=== PATIENT | male | born 1970 | race Caucasian/White ===

== ENCOUNTER → 2020-02-19 | Outpatient (CLI) | payer OTHER ==
[~2020-02-19] MED LIST: COLLAGENASE OINTMENT 30 GM TUBE ONE; FLEXERIL10 MG PO; GLUCOPHAGE1000 MG PO; LIDOCAINE/PRILOCAINE 2.5-2.5% KIT ONE; MINERAL OIL/PETROLAT/GLYCERI 2OZ CRM ONE; MINERAL OIL/PETROLAT/GLYCERI 6OZ BTL ONE; MUPIROCIN 2% OINT 22 GM TUBE ONE; VICTOZA 2-0.6 MG/0.1; XARELTO20 MG PO; [UNRECOGNIZED DRUG - OTHER]
== END ==
LOC: WCC 09:37
PROVIDERS: ATTEND Family Medicine Adult Medicine
DX: E11.621 Type 2 diabetes mellitus with foot ulcer (principal); L97.429 Non-pressure chronic ulcer of left heel and midfoot with unspecified severity; I89.0 Lymphedema, not elsewhere classified; I82.492 Acute embolism and thrombosis of other specified deep vein of left lower extremity; I82.812 Embolism and thrombosis of superficial veins of left lower extremity; I87.2 Venous insufficiency (chronic) (peripheral); R60.0 Localized edema; G99.0 Autonomic neuropathy in diseases classified elsewhere; I26.90 Septic pulmonary embolism without acute cor pulmonale; I50.9 Heart failure, unspecified; I10 Essential (primary) hypertension; N40.0 Benign prostatic hyperplasia without lower urinary tract symptoms
CPT/HCPCS: 36415; 82948

== ENCOUNTER → 2020-02-26 | Outpatient (CLI) | payer OTHER ==
[~2020-02-26] MED LIST changes: -COLLAGENASE OINTMENT 30 GM TUBE ONE; -LIDOCAINE/PRILOCAINE 2.5-2.5% KIT ONE; -MINERAL OIL/PETROLAT/GLYCERI 2OZ CRM ONE; -MINERAL OIL/PETROLAT/GLYCERI 6OZ BTL ONE; -MUPIROCIN 2% OINT 22 GM TUBE ONE
== END ==
LOC: WCC 11:10
PROVIDERS: ATTEND Family Medicine Adult Medicine
DX: E11.621 Type 2 diabetes mellitus with foot ulcer (principal); I26.90 Septic pulmonary embolism without acute cor pulmonale; L97.429 Non-pressure chronic ulcer of left heel and midfoot with unspecified severity; I82.492 Acute embolism and thrombosis of other specified deep vein of left lower extremity; I82.812 Embolism and thrombosis of superficial veins of left lower extremity; I87.2 Venous insufficiency (chronic) (peripheral); R60.0 Localized edema; I89.0 Lymphedema, not elsewhere classified; I50.9 Heart failure, unspecified; G99.0 Autonomic neuropathy in diseases classified elsewhere; I10 Essential (primary) hypertension; N40.0 Benign prostatic hyperplasia without lower urinary tract symptoms

== ENCOUNTER → 2020-03-01 | Outpatient (CLI) | payer OTHER | LOC: WCC 11:04 | PROVIDERS: ATTEND Family Medicine Adult Medicine | DX: E11.621 Type 2 diabetes mellitus with foot ulcer (principal); I26.90 Septic pulmonary embolism without acute cor pulmonale; L97.429 Non-pressure chronic ulcer of left heel and midfoot with unspecified severity; I82.812 Embolism and thrombosis of superficial veins of left lower extremity; I82.492 Acute embolism and thrombosis of other specified deep vein of left lower extremity; R60.0 Localized edema; I89.0 Lymphedema, not elsewhere classified; I87.2 Venous insufficiency (chronic) (peripheral); I10 Essential (primary) hypertension; N40.0 Benign prostatic hyperplasia without lower urinary tract symptoms; I50.9 Heart failure, unspecified; G99.0 Autonomic neuropathy in diseases classified elsewhere ==

== ENCOUNTER → 2020-03-04 | Outpatient (CLI) | payer OTHER | LOC: WCC 12:54 | PROVIDERS: ATTEND Family Medicine Adult Medicine | DX: E11.621 Type 2 diabetes mellitus with foot ulcer (principal); L97.429 Non-pressure chronic ulcer of left heel and midfoot with unspecified severity; R60.0 Localized edema; I26.90 Septic pulmonary embolism without acute cor pulmonale; I82.492 Acute embolism and thrombosis of other specified deep vein of left lower extremity; I82.812 Embolism and thrombosis of superficial veins of left lower extremity; I87.2 Venous insufficiency (chronic) (peripheral); I89.0 Lymphedema, not elsewhere classified; I10 Essential (primary) hypertension; G99.0 Autonomic neuropathy in diseases classified elsewhere; I50.9 Heart failure, unspecified; N40.0 Benign prostatic hyperplasia without lower urinary tract symptoms | CPT/HCPCS: 87071; 87075; 87186; 87205 ==

== ENCOUNTER → 2020-03-08 | Outpatient (CLI) | payer OTHER | LOC: WCC 10:30 | PROVIDERS: ATTEND Family Medicine Adult Medicine | DX: E11.621 Type 2 diabetes mellitus with foot ulcer (principal); L97.429 Non-pressure chronic ulcer of left heel and midfoot with unspecified severity; I89.0 Lymphedema, not elsewhere classified; I82.812 Embolism and thrombosis of superficial veins of left lower extremity; I82.492 Acute embolism and thrombosis of other specified deep vein of left lower extremity; R60.0 Localized edema; I87.2 Venous insufficiency (chronic) (peripheral); I10 Essential (primary) hypertension; I26.90 Septic pulmonary embolism without acute cor pulmonale; G99.0 Autonomic neuropathy in diseases classified elsewhere; I50.9 Heart failure, unspecified; N40.0 Benign prostatic hyperplasia without lower urinary tract symptoms ==

== ENCOUNTER → 2020-03-11 | Outpatient (CLI) | payer OTHER | LOC: WCC 11:30 | PROVIDERS: ATTEND Family Medicine Adult Medicine | DX: E11.621 Type 2 diabetes mellitus with foot ulcer (principal); I26.90 Septic pulmonary embolism without acute cor pulmonale; L97.429 Non-pressure chronic ulcer of left heel and midfoot with unspecified severity; I82.492 Acute embolism and thrombosis of other specified deep vein of left lower extremity; I82.812 Embolism and thrombosis of superficial veins of left lower extremity; I87.2 Venous insufficiency (chronic) (peripheral); I89.0 Lymphedema, not elsewhere classified; R60.0 Localized edema; B96.89 Other specified bacterial agents as the cause of diseases classified elsewhere; G99.0 Autonomic neuropathy in diseases classified elsewhere; I10 Essential (primary) hypertension; I50.9 Heart failure, unspecified; N40.0 Benign prostatic hyperplasia without lower urinary tract symptoms ==

== ENCOUNTER → 2020-03-15 | Outpatient (CLI) | payer OTHER ==
[~2020-03-15] MED LIST changes: +LIDOCAINE VISC 2% SOLN 15 ML UDC ONE; +MINERAL OIL/PETROLAT/GLYCERI 6OZ BTL ONE
== END ==
LOC: WCC 14:35
PROVIDERS: ATTEND Family Medicine Adult Medicine
DX: E11.621 Type 2 diabetes mellitus with foot ulcer (principal); L97.429 Non-pressure chronic ulcer of left heel and midfoot with unspecified severity; I82.492 Acute embolism and thrombosis of other specified deep vein of left lower extremity; I82.812 Embolism and thrombosis of superficial veins of left lower extremity; I89.0 Lymphedema, not elsewhere classified; I87.2 Venous insufficiency (chronic) (peripheral); R60.0 Localized edema; G99.0 Autonomic neuropathy in diseases classified elsewhere; I50.9 Heart failure, unspecified; I26.90 Septic pulmonary embolism without acute cor pulmonale; I10 Essential (primary) hypertension; B96.89 Other specified bacterial agents as the cause of diseases classified elsewhere; N40.0 Benign prostatic hyperplasia without lower urinary tract symptoms

== ENCOUNTER → 2020-03-18 | Outpatient (CLI) | payer OTHER ==
[~2020-03-18] MED LIST changes: -LIDOCAINE VISC 2% SOLN 15 ML UDC ONE; -MINERAL OIL/PETROLAT/GLYCERI 6OZ BTL ONE
== END ==
LOC: WCC 12:19
PROVIDERS: ATTEND Family Medicine Adult Medicine
DX: E11.621 Type 2 diabetes mellitus with foot ulcer (principal); L97.429 Non-pressure chronic ulcer of left heel and midfoot with unspecified severity; I26.90 Septic pulmonary embolism without acute cor pulmonale; I82.492 Acute embolism and thrombosis of other specified deep vein of left lower extremity; I82.812 Embolism and thrombosis of superficial veins of left lower extremity; I87.2 Venous insufficiency (chronic) (peripheral); I89.0 Lymphedema, not elsewhere classified; R60.0 Localized edema; I10 Essential (primary) hypertension; I50.9 Heart failure, unspecified; B96.89 Other specified bacterial agents as the cause of diseases classified elsewhere; G99.0 Autonomic neuropathy in diseases classified elsewhere; N40.0 Benign prostatic hyperplasia without lower urinary tract symptoms

== ENCOUNTER → 2020-03-22 | Outpatient (CLI) | payer OTHER | LOC: WCC 16:01 | PROVIDERS: ATTEND Family Medicine Adult Medicine | DX: E11.621 Type 2 diabetes mellitus with foot ulcer (principal); L97.429 Non-pressure chronic ulcer of left heel and midfoot with unspecified severity; I82.492 Acute embolism and thrombosis of other specified deep vein of left lower extremity; I82.812 Embolism and thrombosis of superficial veins of left lower extremity; I89.0 Lymphedema, not elsewhere classified; R60.0 Localized edema; I87.2 Venous insufficiency (chronic) (peripheral); I26.90 Septic pulmonary embolism without acute cor pulmonale; I10 Essential (primary) hypertension; I50.9 Heart failure, unspecified; B96.89 Other specified bacterial agents as the cause of diseases classified elsewhere; N40.0 Benign prostatic hyperplasia without lower urinary tract symptoms; G99.0 Autonomic neuropathy in diseases classified elsewhere ==

== ENCOUNTER → 2020-03-25 | Outpatient (CLI) | payer OTHER ==
[2020-03-25 13:17] LABS: BASOPHILS % 0.5 % (0.0-1.0); EOSINOPHILS # (AUTO) 0.2 (0.0-0.4); EOSINOPHILS % 2.7 % (0.0-6.0); HEMATOCRIT 50.3 % (38.2-49.6); HEMOGLOBIN 16.6 g/dL (14.0-18.0); LYMPHOCYTES % 13.7 % (18.0-39.1); MEAN CORPUSCULAR VOLUME 87.8 fL (81-99); MONOCYTES # (AUTO) 0.6 (0.2-0.8); MONOCYTES % 7.8 % (4.4-11.3); NEUTROPHILS # (AUTO) 5.6 (2.1-6.9); NEUTROPHILS % 74.9 % (38.7-80.0); PLATELET COUNT 226 x10e3/uL (140-360); RED BLOOD COUNT 5.73 x10e6/uL (4.3-5.7); RED CELL DISTRIBUTION WIDTH 13.3 % (11.7-14.4)
[2020-03-25 13:21] LABS: CALCIUM 9.2 mg/dL (8.4-10.2); CREATININE, SERUM 1.33 mg/dL (0.72-1.25)
== END ==
LOC: WCC 13:41
PROVIDERS: ATTEND Family Medicine Adult Medicine
DX: E11.621 Type 2 diabetes mellitus with foot ulcer (principal); L97.429 Non-pressure chronic ulcer of left heel and midfoot with unspecified severity; I82.492 Acute embolism and thrombosis of other specified deep vein of left lower extremity; I82.812 Embolism and thrombosis of superficial veins of left lower extremity; I26.90 Septic pulmonary embolism without acute cor pulmonale; R60.0 Localized edema; I87.2 Venous insufficiency (chronic) (peripheral); I89.0 Lymphedema, not elsewhere classified; G99.0 Autonomic neuropathy in diseases classified elsewhere; I10 Essential (primary) hypertension; I50.9 Heart failure, unspecified; N40.0 Benign prostatic hyperplasia without lower urinary tract symptoms; B96.89 Other specified bacterial agents as the cause of diseases classified elsewhere
CPT/HCPCS: 36415; 80048; 83036; 84134; 85025

== ENCOUNTER → 2020-03-29 | Outpatient (CLI) | payer OTHER | LOC: WCC 15:11 | PROVIDERS: ATTEND Family Medicine Adult Medicine | DX: E11.621 Type 2 diabetes mellitus with foot ulcer (principal); L97.429 Non-pressure chronic ulcer of left heel and midfoot with unspecified severity; S91.309A Unspecified open wound, unspecified foot, initial encounter; I82.492 Acute embolism and thrombosis of other specified deep vein of left lower extremity; I82.812 Embolism and thrombosis of superficial veins of left lower extremity; I26.90 Septic pulmonary embolism without acute cor pulmonale; R60.0 Localized edema; I87.2 Venous insufficiency (chronic) (peripheral); I89.0 Lymphedema, not elsewhere classified; G99.0 Autonomic neuropathy in diseases classified elsewhere; I10 Essential (primary) hypertension; I50.9 Heart failure, unspecified; N40.0 Benign prostatic hyperplasia without lower urinary tract symptoms | CPT/HCPCS: 87071; 87075; 87205 ==

== ENCOUNTER → 2020-04-01 | Outpatient (CLI) | payer OTHER | LOC: WCC 16:25 | PROVIDERS: ATTEND Family Medicine Adult Medicine | DX: E11.621 Type 2 diabetes mellitus with foot ulcer (principal); L97.429 Non-pressure chronic ulcer of left heel and midfoot with unspecified severity; I82.492 Acute embolism and thrombosis of other specified deep vein of left lower extremity; I26.90 Septic pulmonary embolism without acute cor pulmonale; S91.309A Unspecified open wound, unspecified foot, initial encounter; I82.812 Embolism and thrombosis of superficial veins of left lower extremity; R60.0 Localized edema; I87.2 Venous insufficiency (chronic) (peripheral); I89.0 Lymphedema, not elsewhere classified; G99.0 Autonomic neuropathy in diseases classified elsewhere; I10 Essential (primary) hypertension; I50.9 Heart failure, unspecified; N40.0 Benign prostatic hyperplasia without lower urinary tract symptoms; X58.XXXA Exposure to other specified factors, initial encounter | CPT/HCPCS: 10140 ==

== ENCOUNTER → 2020-04-05 | Outpatient (CLI) | payer OTHER | LOC: WCC 14:04 | PROVIDERS: ATTEND Family Medicine Adult Medicine | DX: E11.621 Type 2 diabetes mellitus with foot ulcer (principal); L97.429 Non-pressure chronic ulcer of left heel and midfoot with unspecified severity; S91.309A Unspecified open wound, unspecified foot, initial encounter; I26.90 Septic pulmonary embolism without acute cor pulmonale; R60.0 Localized edema; I82.492 Acute embolism and thrombosis of other specified deep vein of left lower extremity; I82.812 Embolism and thrombosis of superficial veins of left lower extremity; I87.2 Venous insufficiency (chronic) (peripheral); I89.0 Lymphedema, not elsewhere classified; I50.9 Heart failure, unspecified; I10 Essential (primary) hypertension; G99.0 Autonomic neuropathy in diseases classified elsewhere; N40.0 Benign prostatic hyperplasia without lower urinary tract symptoms; X58.XXXA Exposure to other specified factors, initial encounter ==

== ENCOUNTER → 2020-04-08 | Outpatient (CLI) | payer OTHER | LOC: WCC 13:49 | PROVIDERS: ATTEND Family Medicine Adult Medicine | DX: E11.621 Type 2 diabetes mellitus with foot ulcer (principal); L97.429 Non-pressure chronic ulcer of left heel and midfoot with unspecified severity; I26.90 Septic pulmonary embolism without acute cor pulmonale; I82.492 Acute embolism and thrombosis of other specified deep vein of left lower extremity; S91.309A Unspecified open wound, unspecified foot, initial encounter; I82.812 Embolism and thrombosis of superficial veins of left lower extremity; I87.2 Venous insufficiency (chronic) (peripheral); I89.0 Lymphedema, not elsewhere classified; R60.0 Localized edema; G99.0 Autonomic neuropathy in diseases classified elsewhere; I10 Essential (primary) hypertension; I50.9 Heart failure, unspecified; N40.0 Benign prostatic hyperplasia without lower urinary tract symptoms; X58.XXXA Exposure to other specified factors, initial encounter ==

== ENCOUNTER → 2020-04-12 | Outpatient (CLI) | payer OTHER | LOC: WCC 14:54 | PROVIDERS: ATTEND Family Medicine Adult Medicine | DX: E11.621 Type 2 diabetes mellitus with foot ulcer (principal); S91.309A Unspecified open wound, unspecified foot, initial encounter; I26.90 Septic pulmonary embolism without acute cor pulmonale; I82.492 Acute embolism and thrombosis of other specified deep vein of left lower extremity; I82.812 Embolism and thrombosis of superficial veins of left lower extremity; I89.0 Lymphedema, not elsewhere classified; R60.0 Localized edema; I87.2 Venous insufficiency (chronic) (peripheral); G99.0 Autonomic neuropathy in diseases classified elsewhere; I10 Essential (primary) hypertension; I50.9 Heart failure, unspecified; N40.0 Benign prostatic hyperplasia without lower urinary tract symptoms; X58.XXXA Exposure to other specified factors, initial encounter ==

== ENCOUNTER → 2020-04-15 | Outpatient (CLI) | payer OTHER | LOC: WCC 14:23 | PROVIDERS: ATTEND Family Medicine Adult Medicine | DX: E11.621 Type 2 diabetes mellitus with foot ulcer (principal); I26.90 Septic pulmonary embolism without acute cor pulmonale; S91.309A Unspecified open wound, unspecified foot, initial encounter; I82.492 Acute embolism and thrombosis of other specified deep vein of left lower extremity; I82.812 Embolism and thrombosis of superficial veins of left lower extremity; R60.0 Localized edema; I87.2 Venous insufficiency (chronic) (peripheral); I89.0 Lymphedema, not elsewhere classified; G99.0 Autonomic neuropathy in diseases classified elsewhere; I10 Essential (primary) hypertension; I50.9 Heart failure, unspecified; N40.0 Benign prostatic hyperplasia without lower urinary tract symptoms; X58.XXXA Exposure to other specified factors, initial encounter ==

== ENCOUNTER → 2020-04-19 | Outpatient (CLI) | payer OTHER | LOC: WCC 14:40 | PROVIDERS: ATTEND Family Medicine Adult Medicine | DX: E11.621 Type 2 diabetes mellitus with foot ulcer (principal); S91.309A Unspecified open wound, unspecified foot, initial encounter; I82.492 Acute embolism and thrombosis of other specified deep vein of left lower extremity; I82.812 Embolism and thrombosis of superficial veins of left lower extremity; I26.90 Septic pulmonary embolism without acute cor pulmonale; R60.0 Localized edema; I87.2 Venous insufficiency (chronic) (peripheral); I89.0 Lymphedema, not elsewhere classified; G99.0 Autonomic neuropathy in diseases classified elsewhere; I10 Essential (primary) hypertension; I50.9 Heart failure, unspecified; N40.0 Benign prostatic hyperplasia without lower urinary tract symptoms; X58.XXXA Exposure to other specified factors, initial encounter ==

== ENCOUNTER → 2020-04-22 | Outpatient (CLI) | payer OTHER | LOC: WCC 10:13 | PROVIDERS: ATTEND Family Medicine Adult Medicine | DX: E11.621 Type 2 diabetes mellitus with foot ulcer (principal); I26.90 Septic pulmonary embolism without acute cor pulmonale; I82.492 Acute embolism and thrombosis of other specified deep vein of left lower extremity; I82.812 Embolism and thrombosis of superficial veins of left lower extremity; S91.309A Unspecified open wound, unspecified foot, initial encounter; I87.2 Venous insufficiency (chronic) (peripheral); R60.0 Localized edema; I89.0 Lymphedema, not elsewhere classified; G99.0 Autonomic neuropathy in diseases classified elsewhere; I10 Essential (primary) hypertension; I50.9 Heart failure, unspecified; N40.0 Benign prostatic hyperplasia without lower urinary tract symptoms; X58.XXXA Exposure to other specified factors, initial encounter ==

== ENCOUNTER → 2020-04-30 | Outpatient (CLI) | payer OTHER | LOC: WCC 14:41 | PROVIDERS: ATTEND Family Medicine Adult Medicine | DX: E11.621 Type 2 diabetes mellitus with foot ulcer (principal); I26.90 Septic pulmonary embolism without acute cor pulmonale; I82.812 Embolism and thrombosis of superficial veins of left lower extremity; S91.309A Unspecified open wound, unspecified foot, initial encounter; I82.492 Acute embolism and thrombosis of other specified deep vein of left lower extremity; R60.0 Localized edema; I89.0 Lymphedema, not elsewhere classified; I87.2 Venous insufficiency (chronic) (peripheral); I50.9 Heart failure, unspecified; I10 Essential (primary) hypertension; G99.0 Autonomic neuropathy in diseases classified elsewhere; N40.0 Benign prostatic hyperplasia without lower urinary tract symptoms; X58.XXXA Exposure to other specified factors, initial encounter ==

== ENCOUNTER → 2020-05-03 | Outpatient (CLI) | payer OTHER | LOC: WCC 15:53 | PROVIDERS: ATTEND Family Medicine Adult Medicine | DX: E11.621 Type 2 diabetes mellitus with foot ulcer (principal); S91.309A Unspecified open wound, unspecified foot, initial encounter; I26.90 Septic pulmonary embolism without acute cor pulmonale; I82.492 Acute embolism and thrombosis of other specified deep vein of left lower extremity; I82.812 Embolism and thrombosis of superficial veins of left lower extremity; I87.2 Venous insufficiency (chronic) (peripheral); R60.0 Localized edema; I89.0 Lymphedema, not elsewhere classified; N40.0 Benign prostatic hyperplasia without lower urinary tract symptoms; I10 Essential (primary) hypertension; I50.9 Heart failure, unspecified; G99.0 Autonomic neuropathy in diseases classified elsewhere; X58.XXXA Exposure to other specified factors, initial encounter ==

== ENCOUNTER → 2020-05-06 | Outpatient (CLI) | payer OTHER | LOC: WCC 15:12 | PROVIDERS: ATTEND Podiatrist | DX: E11.621 Type 2 diabetes mellitus with foot ulcer (principal); L97.421 Non-pressure chronic ulcer of left heel and midfoot limited to breakdown of skin; R60.0 Localized edema; G99.0 Autonomic neuropathy in diseases classified elsewhere; I10 Essential (primary) hypertension; I26.90 Septic pulmonary embolism without acute cor pulmonale; I50.9 Heart failure, unspecified; I82.492 Acute embolism and thrombosis of other specified deep vein of left lower extremity; I82.812 Embolism and thrombosis of superficial veins of left lower extremity; I87.2 Venous insufficiency (chronic) (peripheral); I89.0 Lymphedema, not elsewhere classified; N40.0 Benign prostatic hyperplasia without lower urinary tract symptoms; S91.309A Unspecified open wound, unspecified foot, initial encounter; X58.XXXA Exposure to other specified factors, initial encounter ==

== ENCOUNTER → 2020-05-10 | Outpatient (CLI) | payer OTHER ==
[~2020-05-10] MED LIST changes: +MINERAL OIL/PETROLAT/GLYCERI 6OZ BTL ONE
== END ==
LOC: WCC 15:19
PROVIDERS: ATTEND Family Medicine Adult Medicine
DX: E11.621 Type 2 diabetes mellitus with foot ulcer (principal); L97.421 Non-pressure chronic ulcer of left heel and midfoot limited to breakdown of skin; I87.2 Venous insufficiency (chronic) (peripheral); I26.90 Septic pulmonary embolism without acute cor pulmonale; I82.492 Acute embolism and thrombosis of other specified deep vein of left lower extremity; I82.812 Embolism and thrombosis of superficial veins of left lower extremity; I89.0 Lymphedema, not elsewhere classified; R60.0 Localized edema; G99.0 Autonomic neuropathy in diseases classified elsewhere; I10 Essential (primary) hypertension; N40.0 Benign prostatic hyperplasia without lower urinary tract symptoms; I50.9 Heart failure, unspecified; X58.XXXA Exposure to other specified factors, initial encounter

== ENCOUNTER → 2020-05-13 | Outpatient (CLI) | payer OTHER ==
[~2020-05-13] MED LIST changes: -MINERAL OIL/PETROLAT/GLYCERI 6OZ BTL ONE
== END ==
LOC: WCC 13:27
PROVIDERS: ATTEND Family Medicine Adult Medicine
DX: E11.621 Type 2 diabetes mellitus with foot ulcer (principal); L97.421 Non-pressure chronic ulcer of left heel and midfoot limited to breakdown of skin; I82.492 Acute embolism and thrombosis of other specified deep vein of left lower extremity; I82.812 Embolism and thrombosis of superficial veins of left lower extremity; S91.202A Unspecified open wound of left great toe with damage to nail, initial encounter; I26.90 Septic pulmonary embolism without acute cor pulmonale; I87.2 Venous insufficiency (chronic) (peripheral); I89.0 Lymphedema, not elsewhere classified; R60.0 Localized edema; I10 Essential (primary) hypertension; G99.0 Autonomic neuropathy in diseases classified elsewhere; I50.9 Heart failure, unspecified; N40.0 Benign prostatic hyperplasia without lower urinary tract symptoms; W27.8XXA Contact with other nonpowered hand tool, initial encounter; X58.XXXA Exposure to other specified factors, initial encounter

== ENCOUNTER → 2020-05-17 | Outpatient (CLI) | payer OTHER | LOC: WCC 15:46 | PROVIDERS: ATTEND Family Medicine Adult Medicine | DX: E11.621 Type 2 diabetes mellitus with foot ulcer (principal); I26.90 Septic pulmonary embolism without acute cor pulmonale; L97.421 Non-pressure chronic ulcer of left heel and midfoot limited to breakdown of skin; I82.492 Acute embolism and thrombosis of other specified deep vein of left lower extremity; S91.202A Unspecified open wound of left great toe with damage to nail, initial encounter; I87.2 Venous insufficiency (chronic) (peripheral); I82.812 Embolism and thrombosis of superficial veins of left lower extremity; I89.0 Lymphedema, not elsewhere classified; R60.0 Localized edema; I10 Essential (primary) hypertension; N40.0 Benign prostatic hyperplasia without lower urinary tract symptoms; I50.9 Heart failure, unspecified; G99.0 Autonomic neuropathy in diseases classified elsewhere; W27.8XXA Contact with other nonpowered hand tool, initial encounter; X58.XXXA Exposure to other specified factors, initial encounter ==

== ENCOUNTER → 2020-05-20 | Outpatient (CLI) | payer OTHER | LOC: WCC 14:05 | PROVIDERS: ATTEND Family Medicine Adult Medicine | DX: E11.621 Type 2 diabetes mellitus with foot ulcer (principal); L97.421 Non-pressure chronic ulcer of left heel and midfoot limited to breakdown of skin; S91.202A Unspecified open wound of left great toe with damage to nail, initial encounter; I26.90 Septic pulmonary embolism without acute cor pulmonale; I82.492 Acute embolism and thrombosis of other specified deep vein of left lower extremity; I82.812 Embolism and thrombosis of superficial veins of left lower extremity; I89.0 Lymphedema, not elsewhere classified; I87.2 Venous insufficiency (chronic) (peripheral); R60.0 Localized edema; G99.0 Autonomic neuropathy in diseases classified elsewhere; I10 Essential (primary) hypertension; I50.9 Heart failure, unspecified; N40.0 Benign prostatic hyperplasia without lower urinary tract symptoms; W27.8XXA Contact with other nonpowered hand tool, initial encounter; X58.XXXA Exposure to other specified factors, initial encounter ==

== ENCOUNTER → 2020-05-24 | Outpatient (CLI) | payer OTHER | LOC: WCC 13:31 | PROVIDERS: ATTEND Family Medicine Adult Medicine | DX: S91.202A Unspecified open wound of left great toe with damage to nail, initial encounter (principal); E11.621 Type 2 diabetes mellitus with foot ulcer; L97.421 Non-pressure chronic ulcer of left heel and midfoot limited to breakdown of skin; I87.2 Venous insufficiency (chronic) (peripheral); I82.492 Acute embolism and thrombosis of other specified deep vein of left lower extremity; I82.812 Embolism and thrombosis of superficial veins of left lower extremity; R60.0 Localized edema; I89.0 Lymphedema, not elsewhere classified; I26.90 Septic pulmonary embolism without acute cor pulmonale; N40.0 Benign prostatic hyperplasia without lower urinary tract symptoms; G99.0 Autonomic neuropathy in diseases classified elsewhere; I10 Essential (primary) hypertension; I50.9 Heart failure, unspecified; W27.8XXA Contact with other nonpowered hand tool, initial encounter; X58.XXXA Exposure to other specified factors, initial encounter ==

== ENCOUNTER → 2020-05-27 | Outpatient (CLI) | payer OTHER | LOC: WCC 15:13 | PROVIDERS: ATTEND Family Medicine Adult Medicine | DX: E11.621 Type 2 diabetes mellitus with foot ulcer (principal); I26.90 Septic pulmonary embolism without acute cor pulmonale; S91.202A Unspecified open wound of left great toe with damage to nail, initial encounter; L97.421 Non-pressure chronic ulcer of left heel and midfoot limited to breakdown of skin; I82.492 Acute embolism and thrombosis of other specified deep vein of left lower extremity; I82.812 Embolism and thrombosis of superficial veins of left lower extremity; R60.0 Localized edema; I87.2 Venous insufficiency (chronic) (peripheral); I89.0 Lymphedema, not elsewhere classified; I50.9 Heart failure, unspecified; G99.0 Autonomic neuropathy in diseases classified elsewhere; I10 Essential (primary) hypertension; N40.0 Benign prostatic hyperplasia without lower urinary tract symptoms; W27.8XXA Contact with other nonpowered hand tool, initial encounter; X58.XXXA Exposure to other specified factors, initial encounter ==

== ENCOUNTER → 2020-05-31 | Outpatient (CLI) | payer OTHER | LOC: WCC 14:07 | PROVIDERS: ATTEND Family Medicine Adult Medicine | DX: L89.154 Pressure ulcer of sacral region, stage 4 (principal); E11.69 Type 2 diabetes mellitus with other specified complication; E11.65 Type 2 diabetes mellitus with hyperglycemia; J96.10 Chronic respiratory failure, unspecified whether with hypoxia or hypercapnia; I82.501 Chronic embolism and thrombosis of unspecified deep veins of right lower extremity; I69.954 Hemiplegia and hemiparesis following unspecified cerebrovascular disease affecting left non-dominant side; R53.81 Other malaise; I10 Essential (primary) hypertension; D64.9 Anemia, unspecified; E43 Unspecified severe protein-calorie malnutrition; Z74.01 Bed confinement status ==

== ENCOUNTER → 2020-06-03 | Outpatient (CLI) | payer OTHER | LOC: WCC 15:13 | PROVIDERS: ATTEND Family Medicine Adult Medicine | DX: E11.621 Type 2 diabetes mellitus with foot ulcer (principal); L97.421 Non-pressure chronic ulcer of left heel and midfoot limited to breakdown of skin; I26.90 Septic pulmonary embolism without acute cor pulmonale; I82.492 Acute embolism and thrombosis of other specified deep vein of left lower extremity; I82.812 Embolism and thrombosis of superficial veins of left lower extremity; I87.2 Venous insufficiency (chronic) (peripheral); I89.0 Lymphedema, not elsewhere classified; R60.0 Localized edema; G99.0 Autonomic neuropathy in diseases classified elsewhere; I10 Essential (primary) hypertension; I50.9 Heart failure, unspecified; N40.0 Benign prostatic hyperplasia without lower urinary tract symptoms; W27.8XXA Contact with other nonpowered hand tool, initial encounter; X58.XXXA Exposure to other specified factors, initial encounter ==

== ENCOUNTER → 2020-06-07 | Outpatient (CLI) | payer OTHER | LOC: WCC 15:49 | PROVIDERS: ATTEND Family Medicine Adult Medicine | DX: E11.621 Type 2 diabetes mellitus with foot ulcer (principal); L97.421 Non-pressure chronic ulcer of left heel and midfoot limited to breakdown of skin; I82.492 Acute embolism and thrombosis of other specified deep vein of left lower extremity; I82.812 Embolism and thrombosis of superficial veins of left lower extremity; I87.2 Venous insufficiency (chronic) (peripheral); I26.90 Septic pulmonary embolism without acute cor pulmonale; I89.0 Lymphedema, not elsewhere classified; R60.0 Localized edema; I10 Essential (primary) hypertension; G99.0 Autonomic neuropathy in diseases classified elsewhere; I50.9 Heart failure, unspecified; N40.0 Benign prostatic hyperplasia without lower urinary tract symptoms; W27.8XXA Contact with other nonpowered hand tool, initial encounter; X58.XXXA Exposure to other specified factors, initial encounter ==

== ENCOUNTER → 2020-06-10 | Outpatient (CLI) | payer OTHER | LOC: WCC 15:31 | PROVIDERS: ATTEND Family Medicine Adult Medicine | DX: E11.621 Type 2 diabetes mellitus with foot ulcer (principal); L97.421 Non-pressure chronic ulcer of left heel and midfoot limited to breakdown of skin; I26.90 Septic pulmonary embolism without acute cor pulmonale; I82.492 Acute embolism and thrombosis of other specified deep vein of left lower extremity; I82.812 Embolism and thrombosis of superficial veins of left lower extremity; R60.0 Localized edema; I87.2 Venous insufficiency (chronic) (peripheral); I89.0 Lymphedema, not elsewhere classified; I10 Essential (primary) hypertension; G99.0 Autonomic neuropathy in diseases classified elsewhere; I50.9 Heart failure, unspecified; N40.0 Benign prostatic hyperplasia without lower urinary tract symptoms; W27.8XXA Contact with other nonpowered hand tool, initial encounter; X58.XXXA Exposure to other specified factors, initial encounter ==

== ENCOUNTER → 2020-06-14 | Outpatient (CLI) | payer OTHER | LOC: WCC 15:37 | PROVIDERS: ATTEND Family Medicine Adult Medicine | DX: E11.621 Type 2 diabetes mellitus with foot ulcer (principal); L97.421 Non-pressure chronic ulcer of left heel and midfoot limited to breakdown of skin; I82.812 Embolism and thrombosis of superficial veins of left lower extremity; I82.492 Acute embolism and thrombosis of other specified deep vein of left lower extremity; I26.90 Septic pulmonary embolism without acute cor pulmonale; I87.2 Venous insufficiency (chronic) (peripheral); R60.0 Localized edema; I89.0 Lymphedema, not elsewhere classified; I50.9 Heart failure, unspecified; I10 Essential (primary) hypertension; G99.0 Autonomic neuropathy in diseases classified elsewhere; N40.0 Benign prostatic hyperplasia without lower urinary tract symptoms; W27.8XXA Contact with other nonpowered hand tool, initial encounter; X58.XXXA Exposure to other specified factors, initial encounter ==

== ENCOUNTER → 2020-06-17 | Outpatient (CLI) | payer OTHER | LOC: WCC 13:53 | PROVIDERS: ATTEND Family Medicine Adult Medicine | DX: E11.621 Type 2 diabetes mellitus with foot ulcer (principal); L97.421 Non-pressure chronic ulcer of left heel and midfoot limited to breakdown of skin; I82.492 Acute embolism and thrombosis of other specified deep vein of left lower extremity; I87.2 Venous insufficiency (chronic) (peripheral); I82.812 Embolism and thrombosis of superficial veins of left lower extremity; R60.0 Localized edema; I89.0 Lymphedema, not elsewhere classified; I26.90 Septic pulmonary embolism without acute cor pulmonale; I10 Essential (primary) hypertension; I50.9 Heart failure, unspecified; G99.0 Autonomic neuropathy in diseases classified elsewhere; N40.0 Benign prostatic hyperplasia without lower urinary tract symptoms; W27.8XXA Contact with other nonpowered hand tool, initial encounter; X58.XXXA Exposure to other specified factors, initial encounter ==

== ENCOUNTER 2024-01-13 15:53 | Inpatient (IN) | payer BC ==
[~2024-01-13] VITALS: Ht 190.5 cm; Wt 151.2 kg
[~2024-01-13 15:53] MED LIST changes: +PANTOPRAZOLE SO40 MG PO
[2024-01-13 16:50] VITALS: RESP 18; TEMP 99.2
[2024-01-13 17:47] LABS: BASOPHILS # (AUTO) 0.1 (0.0-0.1); BASOPHILS % 0.4 % (0.0-1.0); EOSINOPHILS # (AUTO) 0.2 (0.0-0.4); EOSINOPHILS % 1.4 % (0.0-6.0); HEMOGLOBIN 13.9 g/dL (14.0-18.0); LYMPHOCYTES # (AUTO) 0.7 (1.0-3.2); LYMPHOCYTES % 4.9 % (18.0-39.1); MEAN CORPUSCULAR HEMOGLOBIN 28.5 pg (28-32); MEAN CORPUSCULAR HGB CONC 30.9 g/dL (31-35); MEAN CORPUSCULAR VOLUME 92.2 fL (81-99); MONOCYTES # (AUTO) 0.9 (0.2-0.8); NEUTROPHILS # (AUTO) 11.4 (2.1-6.9); NEUTROPHILS % 85.7 % (38.7-80.0); PLATELET COUNT 323 x10e3/uL (140-360); RED BLOOD COUNT 4.88 x10e6/uL (4.3-5.7); RED CELL DISTRIBUTION WIDTH 13.5 % (11.7-14.4); WHITE BLOOD COUNT 13.35 x10e3/uL (4.8-10.8)
[2024-01-13 18:01] LABS: INR 1.18; PROTHROMBIN TIME 15.6 seconds (11.9-14.5)
[2024-01-13 18:02] LABS: PARTIAL THROMBOPLASTIN TIME 31.3 seconds (23.8-35.5)
[2024-01-13 18:05] LABS: ALBUMIN 2.8 g/dL (3.5-5.0); ALBUMIN/GLOBULIN RATIO 0.5 (0.8-2.0); ANION GAP 19.2 mmol/L (8-16); CALCIUM 9.3 mg/dL (8.4-10.2); CREATININE, SERUM 1.39 mg/dL (0.72-1.25); POTASSIUM 4.2 mmol/L (3.5-5.1); TOTAL PROTEIN 8.2 g/dL (6.5-8.1)
[2024-01-13] MEDS ORDERED: ONDANSETRON HCL INJ 2MG/ML 2ML 2 MG/ML VIAL IV PRN (18:45)
[2024-01-13 20:00] VITALS: PULSE 90
[2024-01-13] MEDS: SODIUM CHLORIDE 0.9% 1000ML 1,000 ML IV SCH (20:01)
[2024-01-13] MEDS: Clindamycin INJ 300 MG/50 ML 50 ML IV SCH (20:01)
[2024-01-13 20:45] VITALS: BP 132/67; PULSE 89; RESP 20; TEMP 98.8; O2SAT 97; O2SAT 98
[2024-01-13 20:50] VITALS: BP 132/67; PULSE 89; RESP 20; TEMP 98.8; O2SAT 97
[2024-01-13] MEDS ORDERED: TRESIBA FL100 UNIT/1 SC (22:03)
[2024-01-13] MEDS ORDERED: humalog (22:03)
[2024-01-13] MEDS ORDERED: ELIQUIS5 MG PO (22:03)
[2024-01-13] MEDS: Morphine 4mg INJECTION 4 MG/ML INJ IV PRN (22:51)
[2024-01-13 23:20] LABS: TROPONIN I 0.007 ng/mL (0-0.300)
[2024-01-14] VITALS (8 sets, daily range): BP systolic 127–144; BP diastolic 66–72; PULSE 67–80; RESP 18–20; TEMP 97.9–99.6; O2SAT 96–98
[2024-01-14 06:43] LABS: BASOPHILS # (AUTO) 0.1 (0.0-0.1); BASOPHILS % 0.5 % (0.0-1.0); EOSINOPHILS # (AUTO) 0.3 (0.0-0.4); EOSINOPHILS % 2.5 % (0.0-6.0); HEMOGLOBIN 11.8 g/dL (14.0-18.0); LYMPHOCYTES # (AUTO) 0.9 (1.0-3.2); LYMPHOCYTES % 8.5 % (18.0-39.1); MEAN CORPUSCULAR HEMOGLOBIN 28.9 pg (28-32); MEAN CORPUSCULAR HGB CONC 31.9 g/dL (31-35); MEAN CORPUSCULAR VOLUME 90.7 fL (81-99); MONOCYTES % 9.4 % (4.4-11.3); NEUTROPHILS # (AUTO) 8.4 (2.1-6.9); NEUTROPHILS % 78.7 % (38.7-80.0); PLATELET COUNT 261 x10e3/uL (140-360); RED BLOOD COUNT 4.08 x10e6/uL (4.3-5.7); RED CELL DISTRIBUTION WIDTH 13.7 % (11.7-14.4); WHITE BLOOD COUNT 10.72 x10e3/uL (4.8-10.8)
[2024-01-14 07:03] LABS: ALBUMIN 2.3 g/dL (3.5-5.0); ALBUMIN/GLOBULIN RATIO 0.5 (0.8-2.0); ANION GAP 13.7 mmol/L (8-16); BILIRUBIN,TOTAL 0.7 mg/dL (0.2-1.2); CALCIUM 8.5 mg/dL (8.4-10.2); CREATININE, SERUM 1.24 mg/dL (0.72-1.25); POTASSIUM 3.7 mmol/L (3.5-5.1); TOTAL PROTEIN 6.6 g/dL (6.5-8.1)
[2024-01-14 07:09] LABS: TROPONIN I 0.006 ng/mL (0-0.300)
[2024-01-14 11:07] LABS: TROPONIN I 0.003 ng/mL (0-0.300)
[2024-01-14] MEDS ORDERED: DEXTROSE 50% SYRINGE 50 ML IV PRN (13:45)
[2024-01-14] MEDS: INSULIN REGULAR, HUMAN 100 UNIT/1 ML SQ SCH (17:37)
[2024-01-14] MEDS ORDERED: POLYETHYLENE GLYCOL 3350 17 GM PACK PO PRN (17:45)
[2024-01-14] MEDS ORDERED: ACETAMINOPHEN 325 MG TAB PO PRN (17:45)
[2024-01-14] MEDS: PANTOPRAZOLE SOD 40 MG TABEC PO ONE (18:51)
[2024-01-14] MEDS: ENOXAPARIN SODIUM INJ 100 MG/ML SYR SC ONE (21:18)
[2024-01-15] VITALS (8 sets, daily range): BP systolic 119–154; BP diastolic 60–87; PULSE 58–98; RESP 17–19; TEMP 97.7–98.9; O2SAT 96–100
[2024-01-15 07:12] LABS: BASOPHILS # (AUTO) 0.1 (0.0-0.1); BASOPHILS % 0.5 % (0.0-1.0); EOSINOPHILS # (AUTO) 0.2 (0.0-0.4); HEMATOCRIT 41.4 % (38.2-49.6); HEMOGLOBIN 12.8 g/dL (14.0-18.0); LYMPHOCYTES % 10.6 % (18.0-39.1); MEAN CORPUSCULAR HEMOGLOBIN 28.6 pg (28-32); MEAN CORPUSCULAR HGB CONC 30.9 g/dL (31-35); MEAN CORPUSCULAR VOLUME 92.4 fL (81-99); MONOCYTES # (AUTO) 0.7 (0.2-0.8); MONOCYTES % 7.8 % (4.4-11.3); NEUTROPHILS # (AUTO) 7.4 (2.1-6.9); NEUTROPHILS % 78.7 % (38.7-80.0); PLATELET COUNT 273 x10e3/uL (140-360); RED BLOOD COUNT 4.48 x10e6/uL (4.3-5.7); RED CELL DISTRIBUTION WIDTH 13.5 % (11.7-14.4); WHITE BLOOD COUNT 9.41 x10e3/uL (4.8-10.8)
[2024-01-15 07:27] LABS: ALBUMIN 2.1 g/dL (3.5-5.0); ALBUMIN/GLOBULIN RATIO 0.5 (0.8-2.0); BILIRUBIN,TOTAL 0.7 mg/dL (0.2-1.2); CALCIUM 8.5 mg/dL (8.4-10.2); CHOL/HDL RATIO 3.1 (3.9-4.7); CREATININE, SERUM 1.13 mg/dL (0.72-1.25); TOTAL PROTEIN 6.6 g/dL (6.5-8.1)
[2024-01-15 07:45] LABS: MAGNESIUM 1.8 MG/DL (1.3-2.1); PHOSPHORUS 3.3 MG/DL (2.3-4.7)
[2024-01-15 07:47] LABS: THYROID STIMULATING HORMONE 2.206 uIU/mL (0.350-4.940)
[2024-01-15 08:06] LABS: FREE T4 (FREE THYROXINE) 0.82 ng/dL (0.8-1.8)
[2024-01-15] MEDS ORDERED: ENOXAPARIN SODIUM INJ 100 MG/ML SYR SC SCH (09:00)
[2024-01-15] MEDS: DOCUSATE SODIUM 100 MG CAP PO SCH (09:32)
[2024-01-15] MEDS: ASCORBIC ACID 500 MG TAB PO SCH (09:32)
[2024-01-15] MEDS: ZINC SULFATE 50 MG CAP PO SCH (09:32)
[2024-01-15] MEDS: MAGNESIUM OXIDE 400 MG TAB PO SCH (09:32)
[2024-01-15] MEDS: PANTOPRAZOLE SOD 40 MG TABEC PO SCH (09:32)
[2024-01-15] MEDS: ENOXAPARIN SOD INJ 120 MG/0.8 ML SYR SC SCH (09:33)
[2024-01-15] MEDS: OYST-CAL-D 500MG TABLET PO SCH (09:34)
[2024-01-15] MEDS: POVIDONE IODINE 10% 120 ML BTL EXT SCH (09:35)
[2024-01-15] MEDS: MULTIVITAMINS/MINERALS TAB PO SCH (09:35)
[2024-01-16] VITALS (10 sets, daily range): BP systolic 121–162; BP diastolic 68–80; PULSE 67–74; RESP 17–21; TEMP 97.7–98.7; O2SAT 94–99
[2024-01-16] MEDS: HYDRALAZINE HCL 20 MG/ML VIAL IV PRN (21:51)
[2024-01-17] VITALS (10 sets, daily range): BP systolic 110–171; BP diastolic 68–81; PULSE 64–101; RESP 17–20; TEMP 96.5–98.7; O2SAT 95–98
[2024-01-17] MEDS: POLYETHYLENE GLYCOL 3350 17 GM PACK PO SCH (12:56)
[2024-01-17] MEDS: CEFAZOLIN SODIUM 2 GM in SODIUM CHLORIDE 0.9% 100 ML IV SCH (17:15)
[2024-01-18] VITALS (10 sets, daily range): BP systolic 119–150; BP diastolic 64–86; PULSE 68–81; RESP 18; TEMP 97.4–98.3; O2SAT 94–98
[2024-01-18] MEDS ORDERED: PROPOFOL IV EMULSION 10 MG/ML 20 ML VIAL ONE ×3 (06:54→08:42)
[2024-01-18] MEDS ORDERED: LIDOCAINE HCL 2% LOCAL INJ 5 ML SDV VIAL INJ ONE ×2 (06:54→08:41)
[2024-01-18] MEDS ORDERED: FENTANYL CITRATE/PF 100MCG/2 ML INJ ONE ×2 (06:54→08:41)
[2024-01-18] MEDS ORDERED: ONDANSETRON HCL INJ 2MG/ML 2ML 2 MG/ML VIAL ONE ×2 (06:54→10:15)
[2024-01-18] MEDS ORDERED: NEOSTIGMINE 1 MG/ML 10ML VIAL ONE (07:47)
[2024-01-18] MEDS ORDERED: DEXAMETHASONE SOD PHOS INJ 4 MG/ML SDV ONE ×3 (07:47→10:15)
[2024-01-18] MEDS ORDERED: BUPIVACAINE HCL 0.5% INJ 30 ML VIAL INJ ONE (07:47)
[2024-01-18] MEDS ORDERED: ESMOLOL HCL 100MG/10ML 10 MG/ML VIAL ONE (08:21)
[2024-01-18] MEDS ORDERED: SODIUM CHLORIDE 0.9% 100 ML ONE (08:21)
[2024-01-18] MEDS ORDERED: ACETAMINOPHEN 1000 MG/100 ML 100 ML IV ONE (08:23)
[2024-01-18] MEDS ORDERED: METOCLOPRAMIDE HCL 10 MG/2ML VIAL ONE (10:15)
[2024-01-18] MEDS ORDERED: SEVOFLURANE INHAL SOLN 250 ML PEN BTL ONE (10:22)
[2024-01-18] MEDS ORDERED: PHENYLEPHRINE HCL 1% 10 MG/ML VIAL ONE (10:22)
[2024-01-18 12:47] LABS: BASOPHILS % 0.4 % (0.0-1.0); EOSINOPHILS # (AUTO) 0.3 (0.0-0.4); EOSINOPHILS % 3.6 % (0.0-6.0); HEMATOCRIT 41.3 % (38.2-49.6); HEMOGLOBIN 13.4 g/dL (14.0-18.0); LYMPHOCYTES # (AUTO) 1.2 (1.0-3.2); LYMPHOCYTES % 16.3 % (18.0-39.1); MEAN CORPUSCULAR HEMOGLOBIN 28.5 pg (28-32); MEAN CORPUSCULAR HGB CONC 32.4 g/dL (31-35); MEAN CORPUSCULAR VOLUME 87.7 fL (81-99); MONOCYTES # (AUTO) 0.4 (0.2-0.8); MONOCYTES % 5.8 % (4.4-11.3); NEUTROPHILS # (AUTO) 5.3 (2.1-6.9); NEUTROPHILS % 73.6 % (38.7-80.0); PLATELET COUNT 362 x10e3/uL (140-360); RED BLOOD COUNT 4.71 x10e6/uL (4.3-5.7); RED CELL DISTRIBUTION WIDTH 13.3 % (11.7-14.4); WHITE BLOOD COUNT 7.13 x10e3/uL (4.8-10.8)
[2024-01-18 12:59] LABS: ALBUMIN 2.1 g/dL (3.5-5.0); ANION GAP 12.2 mmol/L (8-16); BILIRUBIN,TOTAL 0.3 mg/dL (0.2-1.2); CALCIUM 8.6 mg/dL (8.4-10.2); CREATININE, SERUM 1.2 mg/dL (0.72-1.25); MAGNESIUM 2.1 MG/DL (1.3-2.1); PHOSPHORUS 3.8 MG/DL (2.3-4.7); POTASSIUM 4.2 mmol/L (3.5-5.1); TOTAL PROTEIN 6.9 g/dL (6.5-8.1)
[2024-01-18 13:00] LABS: ALBUMIN/GLOBULIN RATIO 0.4 (0.8-2.0)
[2024-01-19] VITALS (9 sets, daily range): BP systolic 140–185; BP diastolic 67–90; PULSE 66–80; RESP 18–20; TEMP 97.5–98.5; O2SAT 96–99
[2024-01-20] VITALS (10 sets, daily range): BP systolic 155–185; BP diastolic 72–88; PULSE 71–82; RESP 17–18; TEMP 97.8–98.4; O2SAT 95–98
[2024-01-20 06:17] LABS: BASOPHILS % 0.5 % (0.0-1.0); EOSINOPHILS # (AUTO) 0.3 (0.0-0.4); EOSINOPHILS % 4.5 % (0.0-6.0); HEMATOCRIT 39.4 % (38.2-49.6); HEMOGLOBIN 12.6 g/dL (14.0-18.0); LYMPHOCYTES # (AUTO) 0.8 (1.0-3.2); LYMPHOCYTES % 12.4 % (18.0-39.1); MEAN CORPUSCULAR HEMOGLOBIN 28.7 pg (28-32); MEAN CORPUSCULAR VOLUME 89.7 fL (81-99); MONOCYTES # (AUTO) 0.4 (0.2-0.8); MONOCYTES % 6.6 % (4.4-11.3); NEUTROPHILS # (AUTO) 4.7 (2.1-6.9); NEUTROPHILS % 75.5 % (38.7-80.0); PLATELET COUNT 334 x10e3/uL (140-360); RED BLOOD COUNT 4.39 x10e6/uL (4.3-5.7); RED CELL DISTRIBUTION WIDTH 13.3 % (11.7-14.4); WHITE BLOOD COUNT 6.21 x10e3/uL (4.8-10.8)
[2024-01-20 06:35] LABS: ANION GAP 12.3 mmol/L (8-16); CALCIUM 8.7 mg/dL (8.4-10.2); CREATININE, SERUM 1.03 mg/dL (0.72-1.25); POTASSIUM 4.3 mmol/L (3.5-5.1)
[2024-01-21] VITALS (10 sets, daily range): BP systolic 154–183; BP diastolic 76–99; PULSE 65–82; RESP 17–20; TEMP 97.6–98.4; O2SAT 95–100
[2024-01-21] MEDS: CARVEDILOL 12.5 MG TAB PO SCH (17:14)
[2024-01-22] VITALS (8 sets, daily range): BP systolic 153–177; BP diastolic 71–82; PULSE 60–68; RESP 18–20; TEMP 97.6–98.2; O2SAT 97–99
[2024-01-22] MEDS: APIXABAN 5 MG TABLET PO SCH (09:58)
[2024-01-22] MEDS ORDERED: ACETAMINOPHEN325 M1 PO (20:51)
[2024-01-22] MEDS ORDERED: MAG-OXIDE400 MG PO (20:51)
[2024-01-22] MEDS ORDERED: COREG12.5 MG PO (20:51)
[2024-01-22] MEDS ORDERED: ONDANSETRON ODT4 MG PO (20:51)
[2024-01-22] MEDS ORDERED: CEFAZOLIN2 GM/100 M IV (20:51)
[2024-01-22] MEDS ORDERED: COLACE100 M1 PO (20:51)
[2024-01-22] MEDS ORDERED: CALCIUM 500+D1 EAC1 PO (20:51)
[2024-01-22] MEDS ORDERED: PANTOPRAZOLE SO40 MG PO (20:51)
[2024-01-22] MEDS ORDERED: ZINC SULFATE50 M1 PO (20:51)
[2024-01-22] MEDS ORDERED: ONE DAILY COMP1 EACH PO (20:51)
[2024-01-22] MEDS ORDERED: ASCORBIC ACID500 MG PO (20:51)
== END 2024-01-22 22:20 | disposition home or self-care (01) | DRG 240 ==
LOC: ER 18:11 → ERHOLD 18:34 → MED/SURG3 20:16
PROVIDERS: ADMIT Internal Medicine; ATTEND Internal Medicine
PROC: 0J9R0ZZ Drainage of Left Foot Subcutaneous Tissue and Fascia, Open Approach (ICD-10-PCS; 2024-01-14)
PROC: 0Y6N0ZD Detachment at Left Foot, Partial 4th Ray, Open Approach (ICD-10-PCS; principal; 2024-01-21)
PROC: 0HRMXJ3 Replacement of Right Foot Skin with Synthetic Substitute, Full Thickness, External Approach (ICD-10-PCS; 2024-01-21)
PROC: 0JBQ0ZZ Excision of Right Foot Subcutaneous Tissue and Fascia, Open Approach (ICD-10-PCS; 2024-01-21)
PROC: 0JBR0ZZ Excision of Left Foot Subcutaneous Tissue and Fascia, Open Approach (ICD-10-PCS; 2024-01-21)
PROC: 02HV33Z Insertion of Infusion Device into Superior Vena Cava, Percutaneous Approach (ICD-10-PCS; 2024-01-21)
DX: E11.52 Type 2 diabetes mellitus with diabetic peripheral angiopathy with gangrene (principal); I87.013 Postthrombotic syndrome with ulcer of bilateral lower extremity; T82.868A Thrombosis due to vascular prosthetic devices, implants and grafts, initial encounter; Z68.41 Body mass index [BMI] 40.0-44.9, adult; L03.116 Cellulitis of left lower limb; L02.612 Cutaneous abscess of left foot; L97.518 Non-pressure chronic ulcer of other part of right foot with other specified severity; L97.528 Non-pressure chronic ulcer of other part of left foot with other specified severity; Z16.29 Resistance to other single specified antibiotic; E11.621 Type 2 diabetes mellitus with foot ulcer; E66.01 Morbid (severe) obesity due to excess calories; E11.40 Type 2 diabetes mellitus with diabetic neuropathy, unspecified; E11.65 Type 2 diabetes mellitus with hyperglycemia; I82.5Y2 Chronic embolism and thrombosis of unspecified deep veins of left proximal lower extremity; L03.032 Cellulitis of left toe; L08.9 Local infection of the skin and subcutaneous tissue, unspecified; I44.0 Atrioventricular block, first degree; I45.4 Nonspecific intraventricular block; I48.0 Paroxysmal atrial fibrillation; I87.8 Other specified disorders of veins; I89.0 Lymphedema, not elsewhere classified; G47.33 Obstructive sleep apnea (adult) (pediatric); R53.81 Other malaise; B95.61 Methicillin susceptible Staphylococcus aureus infection as the cause of diseases classified elsewhere; Z79.01 Long term (current) use of anticoagulants; Z79.4 Long term (current) use of insulin; Z79.84 Long term (current) use of oral hypoglycemic drugs; Z95.828 Presence of other vascular implants and grafts; Z89.421 Acquired absence of other right toe(s); Z85.47 Personal history of malignant neoplasm of testis; Z86.711 Personal history of pulmonary embolism; Z83.3 Family history of diabetes mellitus; Z82.49 Family history of ischemic heart disease and other diseases of the circulatory system
CPT/HCPCS: 36415; 36569; 71045; 80048; 80053; 80061; 82550; 82948; 83036; 83735; 84100; 84439; 84443; 84484; 85025; 85610; 85730; 87040; 87071; 87075; 87186; 87205; 88304; 88305; 88311; 93005; 93306; 93925; 93971; 94799; 97607; 99252; 99284; J0360; J0690; J1100; J1335; J1650; J2003; J2270; J2371; J2405; J2543; J2710; J2765; J7030; J7050; V2790

== ENCOUNTER → 2024-01-23 | Outpatient (REF) | payer BC ==
[~2024-01-23] MED LIST changes: +ACETAMINOPHEN325 M1 PO; +ASCORBIC ACID500 MG PO; +CALCIUM 500+D1 EAC1 PO; +CEFAZOLIN2 GM/100 M IV; +COLACE100 M1 PO; +COREG12.5 MG PO; +ELIQUIS5 MG PO; +MAG-OXIDE400 MG PO; +ONDANSETRON ODT4 MG PO; +ONE DAILY COMP1 EACH PO; +TRESIBA FL100 UNIT/1 SC; +ZINC SULFATE50 M1 PO; +humalog
== END ==
LOC: WCC 11:19
PROVIDERS: ATTEND Internal Medicine Infectious Disease
DX: E11.621 Type 2 diabetes mellitus with foot ulcer (principal); L97.418 Non-pressure chronic ulcer of right heel and midfoot with other specified severity; L97.518 Non-pressure chronic ulcer of other part of right foot with other specified severity; L97.525 Non-pressure chronic ulcer of other part of left foot with muscle involvement without evidence of necrosis; L97.528 Non-pressure chronic ulcer of other part of left foot with other specified severity

== ENCOUNTER → 2024-01-25 | Outpatient (REF) | payer BC | LOC: WCC 11:36 | PROVIDERS: ATTEND Internal Medicine Infectious Disease | DX: E11.621 Type 2 diabetes mellitus with foot ulcer (principal); L97.518 Non-pressure chronic ulcer of other part of right foot with other specified severity; L97.418 Non-pressure chronic ulcer of right heel and midfoot with other specified severity; L97.525 Non-pressure chronic ulcer of other part of left foot with muscle involvement without evidence of necrosis; L97.528 Non-pressure chronic ulcer of other part of left foot with other specified severity ==

== ENCOUNTER → 2024-01-28 | Outpatient (REF) | payer BC | LOC: WCC 11:25 | PROVIDERS: ATTEND Internal Medicine Infectious Disease | DX: E11.621 Type 2 diabetes mellitus with foot ulcer (principal); L97.418 Non-pressure chronic ulcer of right heel and midfoot with other specified severity; L97.518 Non-pressure chronic ulcer of other part of right foot with other specified severity; L97.525 Non-pressure chronic ulcer of other part of left foot with muscle involvement without evidence of necrosis; L97.528 Non-pressure chronic ulcer of other part of left foot with other specified severity ==

== ENCOUNTER → 2024-01-30 | Outpatient (REF) | payer BC | LOC: WCC 13:02 | PROVIDERS: ATTEND Internal Medicine Infectious Disease | DX: E11.621 Type 2 diabetes mellitus with foot ulcer (principal); L97.418 Non-pressure chronic ulcer of right heel and midfoot with other specified severity; L97.518 Non-pressure chronic ulcer of other part of right foot with other specified severity; L97.525 Non-pressure chronic ulcer of other part of left foot with muscle involvement without evidence of necrosis; L97.528 Non-pressure chronic ulcer of other part of left foot with other specified severity ==

== ENCOUNTER → 2024-02-01 | Outpatient (REF) | payer BC | LOC: WCC 12:06 | PROVIDERS: ATTEND Internal Medicine Infectious Disease | DX: E11.621 Type 2 diabetes mellitus with foot ulcer (principal); L97.418 Non-pressure chronic ulcer of right heel and midfoot with other specified severity; L97.518 Non-pressure chronic ulcer of other part of right foot with other specified severity; L97.525 Non-pressure chronic ulcer of other part of left foot with muscle involvement without evidence of necrosis; L97.528 Non-pressure chronic ulcer of other part of left foot with other specified severity ==

== ENCOUNTER → 2024-02-06 | Outpatient (REF) | payer BC | LOC: WCC 11:02 | PROVIDERS: ATTEND Internal Medicine Infectious Disease | DX: E11.621 Type 2 diabetes mellitus with foot ulcer (principal); L97.518 Non-pressure chronic ulcer of other part of right foot with other specified severity; L97.418 Non-pressure chronic ulcer of right heel and midfoot with other specified severity; L97.525 Non-pressure chronic ulcer of other part of left foot with muscle involvement without evidence of necrosis; L97.528 Non-pressure chronic ulcer of other part of left foot with other specified severity ==

== ENCOUNTER → 2024-04-08 | Outpatient (REF) | payer MEDICARE | LOC: RAD 14:05 | PROVIDERS: ATTEND Nurse Practitioner Family | DX: Z01.818 Encounter for other preprocedural examination (principal); E11.621 Type 2 diabetes mellitus with foot ulcer; M86.672 Other chronic osteomyelitis, left ankle and foot; L97.524 Non-pressure chronic ulcer of other part of left foot with necrosis of bone | CPT/HCPCS: 71046; 93005 ==

== ENCOUNTER → 2024-04-11 | Outpatient (RCR) | payer BC, MEDICARE ==
[~2024-04-11] MED LIST changes: +MINERAL OIL/PETROLAT/GLYCERI 6OZ BTL ONE; +TRYPSIN/BALSAM PERU/CASTOR OIL ONE
== END ==
LOC: WCC 03-14 12:25
PROVIDERS: ATTEND Nurse Practitioner Family
DX: E11.621 Type 2 diabetes mellitus with foot ulcer (principal); L97.518 Non-pressure chronic ulcer of other part of right foot with other specified severity; L97.525 Non-pressure chronic ulcer of other part of left foot with muscle involvement without evidence of necrosis; L97.528 Non-pressure chronic ulcer of other part of left foot with other specified severity

== ENCOUNTER 2024-04-21 14:43 | Emergency (ER) | payer MEDICARE ==
[~2024-04-21] VITALS: Ht 190.5 cm; Wt 154.2 kg
[~2024-04-21 14:43] MED LIST changes: -MINERAL OIL/PETROLAT/GLYCERI 6OZ BTL ONE; -TRYPSIN/BALSAM PERU/CASTOR OIL ONE
[2024-04-21 14:53] VITALS: TEMP 98.3
[2024-04-21 17:12] VITALS: PULSE 64; RESP 16; O2SAT 100
== END 2024-04-21 17:20 | disposition home or self-care (01) ==
LOC: ER 17:20
DX: M79.89 Other specified soft tissue disorders (principal); Z86.718 Personal history of other venous thrombosis and embolism; E11.9 Type 2 diabetes mellitus without complications; I48.91 Unspecified atrial fibrillation; Z85.47 Personal history of malignant neoplasm of testis
CPT/HCPCS: 93971; 99283

== ENCOUNTER → 2024-04-23 | Outpatient (REF) | payer MEDICARE | LOC: DX 13:35 | PROVIDERS: ATTEND Internal Medicine Infectious Disease | DX: M86.272 Subacute osteomyelitis, left ankle and foot (principal) | CPT/HCPCS: 36569; 71045 ==

== ENCOUNTER → 2024-05-02 | Outpatient (REF) | payer MEDICARE | LOC: DX 09:39 | PROVIDERS: ATTEND Internal Medicine Infectious Disease | DX: Z45.2 Encounter for adjustment and management of vascular access device (principal); L03.818 Cellulitis of other sites | CPT/HCPCS: 36584; 71045 ==

== ENCOUNTER → 2024-05-09 | Outpatient (RCR) | payer BC, MEDICARE ==
[~2024-05-09] MED LIST changes: +MINERAL OIL/PETROLAT/GLYCERI 6OZ BTL ONE
== END ==
LOC: WCC 04-14 13:17
PROVIDERS: ATTEND Internal Medicine Infectious Disease
DX: E11.621 Type 2 diabetes mellitus with foot ulcer (principal); L97.518 Non-pressure chronic ulcer of other part of right foot with other specified severity; L97.524 Non-pressure chronic ulcer of other part of left foot with necrosis of bone
CPT/HCPCS: 36415 ×5; 82948 ×5; 97605 ×7; 99212; 99213 ×9; G0277 ×5

== ENCOUNTER → 2024-06-09 | Outpatient (RCR) | payer BC, MEDICARE | LOC: WCC 05-12 10:59 | PROVIDERS: ATTEND Internal Medicine Infectious Disease | DX: E11.621 Type 2 diabetes mellitus with foot ulcer (principal); M86.672 Other chronic osteomyelitis, left ankle and foot; L97.524 Non-pressure chronic ulcer of other part of left foot with necrosis of bone; L97.518 Non-pressure chronic ulcer of other part of right foot with other specified severity | CPT/HCPCS: 36415 ×13; 82948 ×13; 99212 ×4; 99213 ×9; G0277 ×14 ==

== ENCOUNTER 2024-06-24 22:02 | Emergency (ER) | payer MEDICARE ==
[~2024-06-24] VITALS: Ht 190.5 cm; Wt 156.5 kg
[~2024-06-24 22:02] MED LIST changes: -MINERAL OIL/PETROLAT/GLYCERI 6OZ BTL ONE
[2024-06-24 22:05] VITALS: TEMP 98.1
[2024-06-24 22:29] LABS: CLARITY,URINE TURBID (CLEAR); COLOR,URINE BROWN (YELLOW); LEUKOCYTE ESTERASE ,URINE NEGATIVE (NEGATIVE); NITRITE,URINE POSITIVE (NEGATIVE); PH,URINE 6 (5 - 7)
[2024-06-24 22:30] LABS: BILIRUBIN,URINE MODERATE (NEGATIVE); GLUCOSE, URINE 1+ (NEGATIVE); KETONES,URINE TRACE (NEGATIVE); PROTEIN,URINE DIPSTICK >=300 (NEGATIVE)
[2024-06-24 22:52] LABS: BACTERIA,URINE MANY /HPF; EPITHELIAL CELLS,URINE FEW /LPF; RBC,URINE >50 /HPF (0-5); WBC,URINE (MAN) 21-50 /HPF (0-5)
[2024-06-24 23:00] VITALS: PULSE 87; RESP 17
[2024-06-24] MEDS ORDERED: AUGMENTIN 500-1 EACH PO (23:48)
[2024-06-25 00:09] VITALS: BP 127/55; PULSE 86; RESP 16; TEMP 98; O2SAT 95
== END 2024-06-24 23:55 | disposition home or self-care (01) ==
LOC: ER 22:14
DX: R30.0 Dysuria (principal); N39.0 Urinary tract infection, site not specified; R59.1 Generalized enlarged lymph nodes; K80.20 Calculus of gallbladder without cholecystitis without obstruction; E11.40 Type 2 diabetes mellitus with diabetic neuropathy, unspecified; I48.91 Unspecified atrial fibrillation; Z85.47 Personal history of malignant neoplasm of testis; Z86.718 Personal history of other venous thrombosis and embolism
CPT/HCPCS: 74176; 81001; 87086; 87186; 99283

== ENCOUNTER 2024-07-08 10:00 | Outpatient (RCR) | payer BC, MEDICARE ==
[~2024-07-08 10:00] MED LIST changes: +AUGMENTIN 500-1 EACH PO; +MINERAL OIL/PETROLAT/GLYCERI 6OZ BTL ONE
== END 2024-07-09 ==
LOC: WCC 10:00
PROVIDERS: ATTEND Internal Medicine Infectious Disease
DX: E11.621 Type 2 diabetes mellitus with foot ulcer (principal); M86.672 Other chronic osteomyelitis, left ankle and foot; L97.524 Non-pressure chronic ulcer of other part of left foot with necrosis of bone
CPT/HCPCS: 36415 ×9; 82948 ×9; 99213 ×7; G0277 ×11

== ENCOUNTER 2024-09-12 18:39 | Emergency (ER) | payer MEDICARE ==
[~2024-09-12] VITALS: Ht 190.5 cm; Wt 156.5 kg
[~2024-09-12 18:39] MED LIST changes: -MINERAL OIL/PETROLAT/GLYCERI 6OZ BTL ONE
[2024-09-12 19:00] VITALS: PULSE 58; RESP 18; TEMP 97.8
[2024-09-12] MEDS ORDERED: ONDANSETRON HCL INJ 2MG/ML 2ML 2 MG/ML VIAL ONE (19:38)
[2024-09-12] MEDS ORDERED: KETOROLAC TROMETHAMINE 30 MG/ML VIAL ONE (19:38)
[2024-09-12] MEDS: SODIUM CHLORIDE 0.9% 1000ML 1,000 ML IV ONE (19:42)
[2024-09-12] MEDS: KETOROLAC TROMETHAMINE 30 MG/ML VIAL IV STA (19:43)
[2024-09-12] MEDS: ONDANSETRON HCL INJ 2MG/ML 2ML 2 MG/ML VIAL IV STA (19:43)
[2024-09-12 19:45] LABS: BASOPHILS % 0.4 % (0.0-1.0); EOSINOPHILS % 2.6 % (0.0-6.0); LYMPHOCYTES % 9.9 % (18.0-39.1); MONOCYTES % 7.0 % (4.4-11.3); NEUTROPHILS % 79.6 % (38.7-80.0); RED CELL DISTRIBUTION WIDTH 15.4 % (11.7-14.4)
[2024-09-12 20:10] LABS: EST GLOMERULAR FILTRATION RATE 44.0 ML/MIN (>=60)
[2024-09-12] MEDS: Morphine 4mg INJECTION 4 MG/ML INJ IV ONE (20:55)
[2024-09-12 21:12] LABS: AMPHETAMINES SCREEN,URINE NEGATIVE (NEGATIVE); CANNABINOIDS SCREEN,URINE NEGATIVE (NEGATIVE); COCAINE SCREEN,URINE NEGATIVE (NEGATIVE); METHADONE SCREEN, URINE NEGATIVE (NEGATIVE); OPIATES SCREEN,URINE POSITIVE (NEGATIVE)
[2024-09-12 21:15] LABS: LEUKOCYTE ESTERASE ,URINE NEGATIVE (NEGATIVE); PROTEIN,URINE DIPSTICK >=300 (NEGATIVE); URINE UROBILINOGEN 0.2 mg/dL (0.2 - 1)
[2024-09-12 21:22] LABS: WBC,URINE (MAN) 0-5 /HPF (0-5); YEAST,URINE FEW
[2024-09-12] MEDS ORDERED: LEVOFLOXACIN750 MG PO (21:44)
[2024-09-12] MEDS ORDERED: HYDROCODON-ACE1 EAC9 PO (21:44)
[2024-09-12] MEDS ORDERED: FLOMAX0.4 MG PO (21:44)
[2024-09-12] MEDS ORDERED: ONDANSETRON ODT4 MG PO (21:44)
[2024-09-12 21:48] VITALS: BP 193/100; PULSE 81; RESP 19; TEMP 98.3; O2SAT 95
== END 2024-09-12 22:05 | disposition home or self-care (01) ==
LOC: ER 19:10
DX: R11.2 Nausea with vomiting, unspecified (principal); N20.2 Calculus of kidney with calculus of ureter; R10.9 Unspecified abdominal pain; E11.65 Type 2 diabetes mellitus with hyperglycemia; E11.40 Type 2 diabetes mellitus with diabetic neuropathy, unspecified; I48.91 Unspecified atrial fibrillation; Z85.47 Personal history of malignant neoplasm of testis
CPT/HCPCS: 36415; 74176; 80053; 80307; 81001; 83690; 85025; 99284; J1885; J2270; J2405; J7030

== ENCOUNTER 2024-11-07 10:30 | Outpatient (RCR) | payer MEDICARE ==
[~2024-11-07 10:30] MED LIST changes: +FLOMAX0.4 MG PO; +HYDROCODON-ACE1 EAC9 PO; +LEVOFLOXACIN750 MG PO; +MINERAL OIL/PETROLAT/GLYCERI 6OZ BTL ONE
== END 2024-11-09 ==
LOC: WCC 10:30
PROVIDERS: ATTEND Internal Medicine Infectious Disease
DX: E11.621 Type 2 diabetes mellitus with foot ulcer (principal); L97.421 Non-pressure chronic ulcer of left heel and midfoot limited to breakdown of skin

== ENCOUNTER → 2024-12-09 | Outpatient (RCR) | payer MEDICARE ==
[~2024-12-09] MED LIST changes: -MINERAL OIL/PETROLAT/GLYCERI 6OZ BTL ONE
== END ==
LOC: WCC 11-11 10:54
PROVIDERS: ATTEND Internal Medicine Infectious Disease
DX: E11.621 Type 2 diabetes mellitus with foot ulcer (principal); L97.421 Non-pressure chronic ulcer of left heel and midfoot limited to breakdown of skin

== ENCOUNTER 2024-12-14 05:53 | Inpatient (IN) | payer MEDICARE ==
[2024-12-14] VITALS (8 sets, daily range): BP systolic 137–154; BP diastolic 73–78; PULSE 72–89; RESP 16–18; TEMP 97.5–97.9; O2SAT 97–98
[~2024-12-14] VITALS: Ht 190.5 cm; Wt 156.5 kg
[2024-12-14 07:14] LABS: BASOPHILS % 0.2 % (0.0-1.0); EOSINOPHILS % 2.5 % (0.0-6.0); LYMPHOCYTES % 8.9 % (18.0-39.1); MONOCYTES % 8.8 % (4.4-11.3); NEUTROPHILS % 79.1 % (38.7-80.0); RED CELL DISTRIBUTION WIDTH 14.7 % (11.7-14.4)
[2024-12-14] MEDS: SODIUM CHLORIDE 0.9% 1000ML 1,000 ML IV STA (07:36)
[2024-12-14 07:41] LABS: INR 1.37
[2024-12-14 07:50] LABS: EST GLOMERULAR FILTRATION RATE 51.0 ML/MIN (>=60)
[2024-12-14] MEDS: Vancomycin IV 1 GM in SODIUM CHLORIDE 0.9% 250ML 250 ML IV ONE (08:03)
[2024-12-14] MEDS ORDERED: ONDANSETRON HCL INJ 2MG/ML 2ML 2 MG/ML VIAL IV PRN (08:15)
[2024-12-14 08:17] LABS: LEUKOCYTE ESTERASE ,URINE NEGATIVE (NEGATIVE); PROTEIN,URINE DIPSTICK >=300 (NEGATIVE); URINE UROBILINOGEN 0.2 mg/dL (0.2 - 1)
[2024-12-14 08:18] LABS: EPITHELIAL CELLS,URINE FEW /LPF; WBC,URINE (MAN) >50 /HPF (0-5); YEAST,URINE MODERATE
[2024-12-14] MEDS: SODIUM CHLORIDE 0.9% 1000ML 1,000 ML IV SCH (09:06)
[2024-12-14] MEDS ORDERED: WARFARIN SODIUM5 MG (13:39)
[2024-12-15] VITALS (7 sets, daily range): BP systolic 146–166; BP diastolic 74–82; PULSE 70–75; RESP 18–20; TEMP 97.9–99; O2SAT 95–98
[2024-12-15 05:37] LABS: BASOPHILS % 0.7 % (0.0-1.0); EOSINOPHILS % 3.8 % (0.0-6.0); LYMPHOCYTES % 12.8 % (18.0-39.1); MONOCYTES % 10.0 % (4.4-11.3); NEUTROPHILS % 72.3 % (38.7-80.0); RED CELL DISTRIBUTION WIDTH 14.8 % (11.7-14.4)
[2024-12-15 05:58] LABS: EST GLOMERULAR FILTRATION RATE 51.0 ML/MIN (>=60)
[2024-12-15] MEDS: TAMSULOSIN HCL 0.4 MG CAP PO SCH (14:02)
[2024-12-15] MEDS: SODIUM CHLORIDE 0.9% 1000ML 1,000 ML IV SCH (14:03)
[2024-12-15] MEDS: CARVEDILOL 12.5 MG TAB PO SCH (14:03)
[2024-12-15] MEDS: WARFARIN SOD 5 MG TAB PO SCH (17:45)
[2024-12-16] VITALS (7 sets, daily range): BP systolic 131–168; BP diastolic 69–79; PULSE 62–83; RESP 20; TEMP 97.9–99; O2SAT 97–99
[2024-12-16] MEDS: FLUTICASONE PROPIONATE NASAL SPRAY NS SCH (18:28)
[2024-12-16] MEDS: GUAIFENESIN 600 MG TAB PO PRN (21:54)
[2024-12-17] VITALS (8 sets, daily range): BP systolic 128–154; BP diastolic 73–84; PULSE 62–99; RESP 18–20; TEMP 97.3–98.3; O2SAT 96–100
[2024-12-18] VITALS (7 sets, daily range): BP systolic 130–195; BP diastolic 67–85; PULSE 54–63; RESP 18–20; TEMP 96.7–97.9; O2SAT 94–98
[2024-12-18 06:16] LABS: INR 1.75
[2024-12-19] MEDS ORDERED: HYDROCODONE/APAP 10MG-325MG TAB PO PRN (03:00)
[2024-12-19 05:56] VITALS: BP 162/73; PULSE 55; RESP 19; TEMP 96.7; O2SAT 97
[2024-12-19 06:08] VITALS: BP 180/83; PULSE 60; RESP 20; TEMP 97.9; O2SAT 98
[2024-12-19] MEDS: HYDRALAZINE HCL 20 MG/ML VIAL IV PRN (06:23)
[2024-12-19] MEDS: TAMSULOSIN HCL 0.4 MG CAP PO SCH (09:38)
[2024-12-19] MEDS: MULTIVITAMINS/MINERALS TAB PO SCH (09:38)
[2024-12-19] MEDS: ASCORBIC ACID 500 MG TAB PO SCH (09:38)
[2024-12-19] MEDS: CALCIUM CARBONATE/VITAMIN D3 500 MG TAB PO SCH (09:40)
[2024-12-19] MEDS: DOCUSATE SODIUM 100 MG CAP PO SCH (09:41)
[2024-12-19] MEDS: ZINC SULFATE 50 MG CAP PO SCH (09:41)
[2024-12-19 10:09] LABS: BASOPHILS % 0.6 % (0.0-1.0); EOSINOPHILS % 4.0 % (0.0-6.0); LYMPHOCYTES % 13.4 % (18.0-39.1); MONOCYTES % 6.4 % (4.4-11.3); NEUTROPHILS % 74.9 % (38.7-80.0); RED CELL DISTRIBUTION WIDTH 14.4 % (11.7-14.4)
[2024-12-19 10:31] LABS: EST GLOMERULAR FILTRATION RATE 90.0 ML/MIN (>=60)
[2024-12-19 10:41] VITALS: BP 168/76; PULSE 74; RESP 18; TEMP 97.9; O2SAT 97
[2024-12-19 13:33] VITALS: BP 164/78; PULSE 66; RESP 20; TEMP 98; O2SAT 97
[2024-12-19 14:15] LABS: INR 2.03
[2024-12-19 17:00] VITALS: BP 163/75; PULSE 58; RESP 20; TEMP 97.8; O2SAT 96
[2024-12-19] MEDS ORDERED: CLEOCIN HCL300 MG PO (17:16)
[2024-12-19] MEDS ORDERED: COREG12.5 MG PO (17:16)
== END 2024-12-19 17:57 | disposition home or self-care (01) | DRG 638 ==
LOC: ER 06:26 → ERHOLD 08:10 → MED/SURG2 14:26
PROVIDERS: ADMIT Internal Medicine; ATTEND Internal Medicine
DX: E11.621 Type 2 diabetes mellitus with foot ulcer (principal); L03.115 Cellulitis of right lower limb; L97.428 Non-pressure chronic ulcer of left heel and midfoot with other specified severity; L97.518 Non-pressure chronic ulcer of other part of right foot with other specified severity; N39.0 Urinary tract infection, site not specified; Z16.12 Extended spectrum beta lactamase (ESBL) resistance; L03.116 Cellulitis of left lower limb; E66.01 Morbid (severe) obesity due to excess calories; Z68.41 Body mass index [BMI] 40.0-44.9, adult; I82.403 Acute embolism and thrombosis of unspecified deep veins of lower extremity, bilateral; N17.9 Acute kidney failure, unspecified; I82.513 Chronic embolism and thrombosis of femoral vein, bilateral; E11.51 Type 2 diabetes mellitus with diabetic peripheral angiopathy without gangrene; E11.22 Type 2 diabetes mellitus with diabetic chronic kidney disease; B96.20 Unspecified Escherichia coli [E. coli] as the cause of diseases classified elsewhere; E11.65 Type 2 diabetes mellitus with hyperglycemia; E11.42 Type 2 diabetes mellitus with diabetic polyneuropathy; I48.0 Paroxysmal atrial fibrillation; N18.31 Chronic kidney disease, stage 3a; N40.0 Benign prostatic hyperplasia without lower urinary tract symptoms; I12.9 Hypertensive chronic kidney disease with stage 1 through stage 4 chronic kidney disease, or unspecified chronic kidney disease; I45.10 Unspecified right bundle-branch block; Z79.4 Long term (current) use of insulin; Z79.01 Long term (current) use of anticoagulants; Z79.84 Long term (current) use of oral hypoglycemic drugs; Z95.828 Presence of other vascular implants and grafts; Z85.47 Personal history of malignant neoplasm of testis; Z89.421 Acquired absence of other right toe(s); Z89.422 Acquired absence of other left toe(s); Z90.79 Acquired absence of other genital organ(s)
CPT/HCPCS: 36415; 71045; 80048; 80053; 81001; 82550; 82948; 83735; 84484; 85025; 85610; 85730; 87040; 87086; 87186; 93005; 93970; 99252; 99284; J0360; J2470; J2543; J3373; J7030; J7050